=== PATIENT | male | born 1960 | race Caucasian/White ===

== ENCOUNTER 2024-01-14 12:41 | Emergency (ER) | payer OTHER, SELFPAY ==
[2024-01-14 12:46] VITALS: BP 154/101
[2024-01-14 12:54] VITALS: BP 153/101
[2024-01-14 13:00] VITALS: BP 139/93
--- NOTE | 2024-01-14 13:19 | ED.GENMED ---
History of Present Illness
General
Chief Complaint: Musculo-Skeletal Complaint
Source: patient
Exam Limitations: none
Time Seen by Provider: 01/14/24 13:08
History of Present Illness
History of Present Illness:
63-year-old male with history of hypertension and chronic kidney disease presents complaining of left scapular pain that radiates down the left arm with occasional palpitations. He also notes decreased tolerance to exertion with shortness of breath
worsening. He denies any obvious chest pain. He denies numbness to the arm. He was seen at the family doctor today and had an abnormal EKG and was sent here for further evaluation. He denies arm or leg pain otherwise. Denies leg swelling. The
pain is not pleuritic in nature.
Past History
Past History
ED Past Medical History: HTN, Hypercholesterolemia and Other (erectile dysfunction, Palpitations)
ED Past Surgical History: Tonsilectomy and Other (Mohs skin sx on L anterior chest wall)
Social History
Tobacco: Non-smoker
Alcohol: None
Drug: None
Personal:
Living: with family
Employment: Employed (computer programer)
Family History
Family History: Negative Early CAD or CAD
Phy Exam
Physical Exam
Physical Exam:
General: Well-appearing male no acute respiratory distress
HEENT: Normocephalic atraumatic
Heart: Regular rate and rhythm
Lungs: Clear no wheeze
Vascular: 2+ radial pulses that are symmetric to bilateral wrists
Musculoskeletal exam: No reproducible pain to palpation of the left posterior shoulder
Course
Orders/Labs/Results
Orders:
Orders
01/14/24 12:42
Electrocardiogram (*1) Urgent
Reason for Study: Chest Pain
EKG- Treatment ONCE
01/14/24 13:49
Complete Blood Count/With Diff Urgent
Comprehensive Metabolic Panel Urgent
NT-proBNP Urgent
Troponin I Urgent
01/14/24 15:06
0.9% Sodium Chloride 1000 ml [Nss] 1,000 ml IV BOLUS
01/14/24 15:15
D-Dimer Urgent
01/14/24 15:47
CR Chest - 2 Views Urgent
Comment:
Reason For Exam: SOB
Abnormal Lab Results
01/14/24
13:49
MCV 76.4 L fL
(80.0-94.0)
Absolute Monos (auto) 0.7 H 10^3/uL
(0.1-0.6)
Lymphocytes % 15.6 L %
(20.5-51.1)
BUN 42 H mg/dl
(9-20)
Creatinine 1.6 H mg/dL
(0.7-1.3)
01/14/24 13:49
01/14/24 13:49
Vital Signs
Initial and Last Documented VS:
Initial Vital Signs
Temp Pulse Resp BP Pulse Ox
98.4 F 98 18 154/101 98
01/14/24 12:46 01/14/24 12:46 01/14/24 12:46 01/14/24 12:46 01/14/24 12:46
Last Documented Vital Signs
Temp Pulse Resp BP Pulse Ox
98.2 F 85 18 152/93 97
01/14/24 15:10 01/14/24 16:45 01/14/24 16:45 01/14/24 15:00 01/14/24 16:45
MDM/Problems Addressed
Differential Diagnosis Includes:
Patient sent in by family doctor for evaluation of scapular pain radiating down the left arm in the setting of hypertension and chronic kidney disease. EKG reviewed and demonstrates sinus rhythm with premature ventricular contractions.
Differential patient's symptoms could be radiculopathy versus dissection versus PE but these are unlikely. Consider CT scan however patient's chronic kidney disease affects this decision. Will check labs and troponin. BNP pending.
*Critical Care Note
Total Time (30-74mins, 75-104mins- exclusive of procedures): Not Applicable
Update Note
Update Note:
Workup here negative other than occasional PVCs on monitor. D-dimer undetectable troponin undetectable BNP normal. Patient has no symptoms at rest. Do not suspect PE or dissection. Discussed findings with emergency room attending as well as
cardiology. No need for emergent echocardiogram. He stable for discharge with follow-up. Will initiate chest pain hotline. Chest x-ray is normal
ED Attending Note
-
Portions of this chart may have been created with voice recognition software.� Occasional wrong word or��sound alike� substitutions may have occurred due to the inherent limitations of voice recognition software.
Discharge Plan
Departure
Patient Disposition: Home (Routine Discharge)
Date of Disposition: 01/14/24
Time of Disposition: 16:52
Patient with high blood pressure during this ER visit?: No
Discharge Problem:
Dyspnea on exertion
Instructions: Chest Pain CBC Follow Up
Prescriptions:
No Action
triamterene-hydrochlorothiazid 1 CAPSULE capsule
1 cap PO DAILY
rosuvastatin 10 MG tablet
10 mg PO QPM
tadalafil [Cialis] 5 MG tablet
5 mg PO PRN PRN (Reason: erectile dysfunction)
Referrals:
Mey Mauro PA [Family Provider] -
Activity Restrictions/Additional Instructions:
Please return here for worsening symptoms. Follow up with cardiology [id number].
Interventions
Interventions:
*Risk Screen - Suicide Last Done: 01/14/24 12:46
*General Assessment Last Done: 01/14/24 12:46
*Neglect/Abuse Screening Last Done: 01/14/24 12:46
*ED COVID-19 Vaccine History Last Done: 01/14/24 14:02
ED-Musculoskeletal Assessment Last Done: 01/14/24 14:02
Discharge Date and Time
Print Language: [id number]
[2024-01-14 13:57] LABS: % Basophils 0.8 % (0-2); % Immature Granulocytes 0.4 % (0-0.5); % Lymphocytes 15.6 % (20.5-51.1); % Monocytes 8.7 % (1.7-9.3); % Neutrophils 73.5 % (42.2-75.2); Absolute Basophils 0.1 10^3/uL (0-0.2); Absolute Eosinophils 0.1 10^3/uL (0-0.7); Absolute Lymphocytes 1.2 10^3/uL (1.2-3.4); Absolute Monocytes 0.7 10^3/uL (0.1-0.6); Absolute Neutrophils 5.8 10^3/uL (1.4-6.5); Hemoglobin 15.1 g/dL (13.0-18.0); Mean Corpuscular Hgb 27.5 pg (27.0-31.0); Mean Corpuscular Volume 76.4 fL (80.0-94.0); Mean Platelet Volume 10.3 fL (7.4-10.4); Nucleated Red Blood Cells % 0 % (-); Platelet Count 230 10^3/uL (130-400); Red Cell Dist. Width 12.5 % (11.5-14.5); White Blood Cell Count 7.8 10^3/uL (4.8-10.8)
[2024-01-14 14:00] VITALS: BP 147/95; BMI 22.2
[2024-01-14 14:13] LABS: ALT (SGPT) 25 U/L (0-50); AST (SGOT) 23 U/L (17-59); Albumin 4.6 g/dl (3.5-5.0); Alkaline Phosphatase 65 U/L (38-126); Blood Urea Nitrogen 42 mg/dl (9-20); Calcium 10.2 mg/dl (8.4-10.2); Carbon Dioxide 23 mmol/L (22-30); Chloride 102 mmol/L (98-107); Estimated Creatinine Clearance 45 ml/min; Glucose 99 mg/dl (70-99); Potassium 4.6 mmol/L (3.5-5.1); Sodium 138 mmol/L (135-145); Total Bilirubin 0.7 mg/dl (0.2-1.3); eGFR 47.82
[2024-01-14 14:25] LABS: NT-proBNP 595 pg/ml; Troponin I < 0.012 ng/ml
[2024-01-14 15:00] VITALS: BP 152/93
[2024-01-14] MEDS: NSS 1000 IV (15:17)
[2024-01-14 15:42] LABS: D-Dimer < 0.27 ug/mlFEU (0.00-0.50)
[2024-01-14 16:47] VITALS: BP 139/96
== END 2024-01-14 17:21 | disposition home or self-care (01) ==
LOC: EMR 12:41
PROVIDERS: Physician Assistant; EMERGENCY PHYSICIAN Emergency Medicine; FAMILY PHYSICIAN Physician Assistant
DX: R06.09 Other forms of dyspnea (principal); I12.9 Hypertensive chronic kidney disease with stage 1 through stage 4 chronic kidney disease, or unspecified chronic kidney disease; N18.9 Chronic kidney disease, unspecified; E78.00 Pure hypercholesterolemia, unspecified
CPT/HCPCS: 99285; 96360; 71046; 80053; 83880; 84484; 85025; 85379; 93005

== ENCOUNTER → 2024-01-26 10:34 | Outpatient (REF) | payer OTHER, SELFPAY | LOC: RCS 10:34 | PROVIDERS: ATTENDING PHYSICIAN Internal Medicine Cardiovascular Disease; FAMILY PHYSICIAN Physician Assistant | DX: R06.09 Other forms of dyspnea (principal) | CPT/HCPCS: 93017 ==

== ENCOUNTER → 2024-01-29 09:20 | Outpatient (REF) | payer OTHER, SELFPAY | LOC: RCS 09:20 | PROVIDERS: ATTENDING PHYSICIAN Internal Medicine Cardiovascular Disease; FAMILY PHYSICIAN Physician Assistant | DX: R00.2 Palpitations (principal) | CPT/HCPCS: 93225; 93226 ==

== ENCOUNTER → 2024-02-06 12:43 | Outpatient (REF) | payer OTHER, SELFPAY | LOC: RCS 12:43 | PROVIDERS: ATTENDING PHYSICIAN Internal Medicine Cardiovascular Disease; FAMILY PHYSICIAN Physician Assistant | DX: R06.09 Other forms of dyspnea (principal) | CPT/HCPCS: 93306 ==

== ENCOUNTER 2024-03-09 13:57 | Outpatient (RCR) | payer OTHER, SELFPAY | END 2024-03-09 23:59 | disposition home or self-care (01) | LOC: RPT 13:57 | PROVIDERS: ATTENDING PHYSICIAN Physician Assistant | DX: M25.512 Pain in left shoulder (principal); M50.30 Other cervical disc degeneration, unspecified cervical region; Z73.6 Limitation of activities due to disability; M62.81 Muscle weakness (generalized) | CPT/HCPCS: 97010; 97110; 97140; 97162 ==

== ENCOUNTER 2024-03-23 12:59 | Outpatient (RCR) | payer OTHER, SELFPAY | END 2024-03-24 07:34 | disposition home or self-care (01) | LOC: RPT 12:59 | PROVIDERS: ATTENDING PHYSICIAN Physician Assistant | DX: M25.512 Pain in left shoulder (principal); M50.30 Other cervical disc degeneration, unspecified cervical region; Z73.6 Limitation of activities due to disability; M62.81 Muscle weakness (generalized) | CPT/HCPCS: 97110 ==

== ENCOUNTER → 2024-04-20 15:37 | Outpatient (REF) | payer OTHER, SELFPAY | LOC: PAVMRI 15:37 | PROVIDERS: ATTENDING PHYSICIAN Physician Assistant | DX: M54.12 Radiculopathy, cervical region (principal) | CPT/HCPCS: 72141 ==

== ENCOUNTER 2024-05-11 13:06 | Outpatient (RCR) | payer OTHER, SELFPAY | END 2024-05-12 07:40 | disposition home or self-care (01) | LOC: RPT 13:06 | PROVIDERS: ATTENDING PHYSICIAN Physician Assistant; FAMILY PHYSICIAN Family Medicine | DX: M48.02 Spinal stenosis, cervical region (principal); M48.00 Spinal stenosis, site unspecified; Z73.6 Limitation of activities due to disability | CPT/HCPCS: 97110; 97162 ==

== ENCOUNTER → 2024-11-19 14:35 | Outpatient (REF) | payer OTHER, SELFPAY | LOC: RAD 14:35 | PROVIDERS: ATTENDING PHYSICIAN Physician Assistant | DX: R68.84 Jaw pain (principal) | CPT/HCPCS: 70110 ==

== ENCOUNTER → 2025-01-20 13:09 | Outpatient (REF) | payer OTHER, SELFPAY | LOC: RAD 13:09 | PROVIDERS: FAMILY PHYSICIAN Physician Assistant | DX: M26.623 Arthralgia of bilateral temporomandibular joint (principal) | CPT/HCPCS: 71046; 93005 ==